=== PATIENT | female | born 1980 | race Caucasian/White ===

== ENCOUNTER 2018-01-12 06:05 | Inpatient (IN) | payer OTHER ==
[2018-01-12] VITALS (25 sets, daily range): BP systolic 115–140; BP diastolic 58–91
[~2018-01-12] VITALS: Ht 172.7 cm; Wt 80.0 kg
[~2018-01-12 06:05] MED LIST: MOTRIN IB200 MG PO; PRENATAL TABLE1 EAC3 PO
[2018-01-12] MEDS ORDERED: FERROUS SULFAT140 MG PO (06:56)
[2018-01-12] MEDS ORDERED: LEVOTHYROXINE25 MCG PO (06:57)
[2018-01-12 08:01] LABS: BASOPHIL (%) 0.3 % (0-1); EOSINOPHIL COUNT 0.1 K/uL (0-0.3); HEMOGLOBIN 9.9 G/DL (11.9-15.5); IMMATURE GRANULOCYTE (%) 0.7 % (0.0-0.7); LYMPHOCYTE (%) 19.6 % (15-42); LYMPHOCYTE COUNT 1.4 K/uL (1.0-2.8); MCHC 31.9 G/DL (30.0-36.0); MCV 87.8 FL (83-99); MONOCYTE (%) 7.2 % (3-12); MONOCYTE COUNT 0.5 K/uL (0-0.8); NEUTROPHIL (%) 71.2 % (45-76); NEUTROPHIL COUNT 5.1 K/uL (1.8-6.4); PLATELET COUNT 209 K/uL (156-360); RBC DIS.WIDTH-CV 15.1 % (11.8-14.6); RBC DIS.WIDTH-SD 47.9 % (39-53); RED BLOOD COUNT 3.53 M/uL (3.80-5.20); WHITE BLOOD COUNT 7.1 K/uL (4.1-10.2)
[2018-01-12] MEDS ORDERED: IBUPROFEN800 MG PO (14:00)
[2018-01-13 07:35] VITALS: BP 115/80
[2018-01-13 15:00] VITALS: BP 122/68
[2018-01-13 23:00] VITALS: BP 128/77
[2018-01-14 07:50] VITALS: BP 128/82
== END 2018-01-14 14:13 | disposition home or self-care (01) | DRG 775 ==
LOC: LDRP-OP 06:05 → 2WEST 06:06 → LDRP-OP 16:24 → 2WEST 01-14 14:13 → LDRP-OP 02-09 11:13
PROVIDERS: Obstetrics & Gynecology
DX: O70.0 First degree perineal laceration during delivery (principal); O71.82 Other specified trauma to perineum and vulva; O75.89 Other specified complications of labor and delivery; R73.03 Prediabetes; O99.02 Anemia complicating childbirth; D50.9 Iron deficiency anemia, unspecified; O99.824 Streptococcus B carrier state complicating childbirth; O99.284 Endocrine, nutritional and metabolic diseases complicating childbirth; E03.9 Hypothyroidism, unspecified; Z3A.40 40 weeks gestation of pregnancy; Z37.0 Single live birth
CPT/HCPCS: 85025; C1755; J2540; J3010; J7120